=== PATIENT | female | born 1975 | race Caucasian/White ===

== ENCOUNTER 2023-03-16 08:58 | Emergency (ER) | payer OTHER, SELFPAY ==
--- NOTE | ~2023-03-16 | XR_ITS ---
EXAMINATION: XR chest 2V DATE: 03/16/2023 09:52 INDICATION: Cough and congestion. TECHNIQUE: Frontal and lateral views of the chest were obtained. COMPARISON: None. FINDINGS: There is no pneumonia, pleural effusion, or pneumothorax. The heart size is normal. IMPRESSION: 1. No acute cardiopulmonary disease. Reviewed, dictated and finalized at location E. MANAGER
[2023-03-16 09:37] VITALS: BP 148/109; PULSE 106; RESP 16; TEMP 36.4; O2SAT 97
--- NOTE | 2023-03-16 09:43 | ED.URI ---
HPI - URI/Sore Throat General Chief Complaint: Upper Respiratory Infection Stated Complaint: cough,chest congestion Time Seen by Provider: 03/16/23 09:12 Source: patient Mode of arrival: ambulatory Limitations: no limitations History of Present Illness HPI Narrative: Adri is a 47-year-old female patient presenting to the clinic today with complaints of cough and chest congestion x1 week. She reports that she is bringing up some yellow phlegm that is blood tinged at times. States she does have shortness of breath intermittently specifically when coughing. Denies any fever or chills. Denies any chest pain. MD elicited complaint: cough and other (Chest congestion) Related Data Home Medications Medication Instructions Recorded Confirmed aspirin 81 mg tablet,delayed 81 mg PO DAILY 03/16/23 03/16/23 release celecoxib 200 mg capsule 200 mg PO DAILY 03/16/23 03/16/23 duloxetine 20 mg capsule,delayed 20 mg PO DAILY 03/16/23 03/16/23 release gabapentin 600 mg tablet 600 mg PO TID 03/16/23 03/16/23 lisinopril 10 mg tablet 10 mg PO DAILY 03/16/23 03/16/23 norethindrone acetate 1 mg-ethinyl 1 tablet PO DAILY 03/16/23 03/16/23 estradiol 20 mcg tablet (Loestrin) trazodone 50 mg tablet 100 mg PO HS 03/16/23 03/16/23 Allergies Allergy/AdvReac Type Severity Reaction Status Date / Time Sulfa (Sulfonamide AdvReac Intermediate Nausea Verified 03/16/23 09:44 Antibiotics) Review of Systems Review of Systems: Pertinent positives per HPI. Patient denies any fever, chills, rash, headache, visual changes, dizziness, cough, shortness of breath, chest pain, palpitations, nausea, vomiting, diarrhea, constipation, abdominal pain, or any urinary issues. PMFSH Comments At the time of my signature, I reviewed and agree with the nursing past medical, surgical, social, and family history. There is no relevant family history pertinent to the patient complaint. Exam Narrative: General: Well-developed, well nourished, in no apparent distress Head: Normocephalic, atraumatic Eyes: Pupils equally round and reactive to light bilaterally, EOM intact, sclera and conjunctive clear, no discharge, lids normal Ears: TMs intact and clear, ear canals clear, no drainage, grossly hearing normal. Nose: Nares patent, no discharge, no inflammation, no sinus tenderness. Mouth: Oral pharynx without lesions or masses, good dentition, MMM. Neck: Supple, trachea midline, no enlargement of anterior or posterior cervical nodes, no thyroid masses or goiter palpable. Cardio: Regular rate and rhythm, s1 and s2 normal, no murmur appreciated. Resp: Faint expiratory wheeze, no rhonchi, rales, or rubs Course Course Emergency Course: Portions of this record may have been created with voice recognition software. Level of Care: Express Care Visit Vital Signs Vital signs: Vital Signs Temperature 36.4 C 03/16/23 09:37 Pulse Rate 106 H 03/16/23 09:37 Respiratory Rate 16 03/16/23 09:37 Blood Pressure 148/109 H 03/16/23 09:37 Pulse Oximetry 97 03/16/23 09:37 Oxygen Delivery Room Air 03/16/23 09:37 Temperature 36.4 C 03/16/23 09:37 Pulse Rate 106 H 03/16/23 09:37 Respiratory Rate 16 03/16/23 09:37 Blood Pressure 148/109 H 03/16/23 09:37 Pulse Oximetry 97 03/16/23 09:37 Oxygen Delivery Room Air 03/16/23 09:37 Vital signs reviewed MDM - URI/Sore Throat MDM Narrative Medical decision making narrative: At the time of visit patient is resting comfortably on exam table. Patient is nontoxic appearing. Chest x-ray was performed and negative in the clinic today. Suspect patient has bronchitis. Will send in prescription for azithromycin, prednisone, and albuterol inhaler. Supportive measures were discussed with the patient she voiced understanding discharge instructions and agrees to treatment plan. Return precautions were reviewed Differential Diagnosis Differential diagnosis: Likely upper respiratory infectio
== END 2023-03-16 10:07 | disposition home or self-care (01) ==
PROVIDERS: Emergency Provider Nurse Practitioner Family
DX: J40 Bronchitis, not specified as acute or chronic (principal); Z79.899 Other long term (current) drug therapy; Z79.82 Long term (current) use of aspirin
CPT/HCPCS: 71046; 99213; G0463

== ENCOUNTER 2023-11-11 07:16 | Outpatient (CLI) | payer OTHER, SELFPAY ==
--- NOTE | ~2023-11-11 | XR_ITS ---
[id number] Ordering provider: Sumit Duong, History: . Arthrodesis status . Comparison: None. FINDINGS: VERTEBRAL BODIES: Normal height and alignment. No visible fracture or subluxation. The dens is intact . Postoperative changes at the level of C5-C6 with disc spacer, plate and screws. DISK SPACES: Well maintained. PARASPINOUS SOFT TISSUES: No prevertebral soft tissue swelling. IMPRESSION: No acute osseous abnormality cervical spine. Reviewed, dictated and finalized at location A.
== END 2023-11-11 07:17 ==
PROVIDERS: Visit Provider Neurological Surgery
DX: Z98.1 Arthrodesis status (principal)
CPT/HCPCS: 72040

== ENCOUNTER 2023-12-29 09:37 | Outpatient (CLI) | payer OTHER, SELFPAY ==
--- NOTE | ~2023-12-29 | XR_ITS ---
Cervical Spine: AP, lateral, open-mouth views Clinical History: Pain Findings: The normal lordotic curve is maintained. There is anterior fusion from C5 to C6 with disc f usion cage present at this level. No fracture or dislocation evident. Remaining disc spaces are prese rved. Pre-vertebral soft tissues are unremarkable. Impression: Status post anterior fusion from C5 to C6. No other significant findings. Reviewed, dictated and finalized at location . Impression: Status post anterior fusion from C5 to C6. No other significant findings.
== END 2023-12-29 09:38 | disposition home or self-care (01) ==
PROVIDERS: Visit Provider Neurological Surgery
DX: Z98.1 Arthrodesis status (principal)
CPT/HCPCS: 72040

== ENCOUNTER 2024-01-26 08:09 | Outpatient (CLI) | payer OTHER, SELFPAY ==
--- NOTE | ~2024-01-26 | XR_ITS ---
Cervical Spine: AP and lateral views Clinical History: Posterior fusion COMPARISON: 12/29/2023 Findings: The normal lordotic curve is maintained. Stable anterior and interbody fusion from C5 to C6 . Osseous alignment is unchanged. Orthopedic hardware unchanged. Stable mild facet arthropathy. Pre-v ertebral soft tissues are unremarkable. Impression: No interval change. Stable fusion changes at C5-C6. Reviewed, dictated and finalized at [facility]. Impression: No interval change. Stable fusion changes at C5-C6.
== END 2024-01-26 08:10 | disposition home or self-care (01) ==
PROVIDERS: Visit Provider Neurological Surgery
DX: Z98.1 Arthrodesis status (principal)
CPT/HCPCS: 72040

== ENCOUNTER 2024-03-20 11:07 | Outpatient (CLI) | payer OTHER, SELFPAY ==
--- NOTE | ~2024-03-20 | XR_ITS ---
[id number]_CR Ordering provider: Sumit Duong, History: . Arthrodesis status . Comparison: None. FINDINGS: VERTEBRAL BODIES: Normal height and alignment. No visible fracture or subluxation. The dens is intact . Postoperative changes are seen at the level of C5-C6. DISK SPACES: Moderate Narrowing of the disc at the level of C4-C5 Disc spacers seen at the level of C 5-C6. PARASPINOUS SOFT TISSUES: No prevertebral soft tissue swelling. IMPRESSION: No acute osseous abnormality cervical spine. Postoperative changes at the level of C5-C6. Moderate narrowing of the disc C4-C5. Reviewed, dictated and finalized at location A. [facility] THERAPY DIRECTOR
== END 2024-03-20 11:08 | disposition home or self-care (01) ==
LOC: MICIMG 11:09
PROVIDERS: PCP Neurological Surgery; Visit Provider Neurological Surgery
DX: M48.02 Spinal stenosis, cervical region (principal); Z98.1 Arthrodesis status
CPT/HCPCS: 72040

== ENCOUNTER 2024-06-28 09:41 | Outpatient (CLI) | payer OTHER, SELFPAY ==
--- NOTE | ~2024-06-28 | XR_ITS ---
3 VIEWS LUMBAR SPINE Ordering provider: Sumit Duong, History: . Arthrodesis status . Comparison: None. FINDINGS: VERTEBRAL BODIES:Postoperative changes at the level of L3, L4 and L5. No visible fracture or subluxa tion. DISK SPACES: Disc spacers are seen at the level of L3-L4 and L4-L5. Other disc spaces are normal. SOFT TISSUES: Normal. IMPRESSION: No acute osseous abnormality lumbar spine. Postoperative changes. Reviewed, dictated and finalized at location A. [employer] STUDIES DEPARTMENT CHAIR
== END 2024-06-28 09:42 | disposition home or self-care (01) ==
PROVIDERS: PCP Neurological Surgery; Visit Provider Neurological Surgery
DX: Z98.1 Arthrodesis status (principal)
CPT/HCPCS: 72100

== ENCOUNTER 2024-07-26 09:49 | Outpatient (CLI) | payer OTHER, SELFPAY ==
--- NOTE | ~2024-07-26 | XR_ITS ---
Lumbosacral Spine: AP and lateral views Clinical History: Arthrodesis COMPARISON: 06/28/2024 Findings: Stable posterior and interbody fusion hardware from L3 through L5. Osseous and orthopedic h ardware alignment is unchanged. The sacroiliac joints are normally outlined. Impression: Stable fusion hardware from L3 through L5, as detailed above. Reviewed, dictated and finalized at location . Impression: Stable fusion hardware from L3 through L5, as detailed above.
== END 2024-07-26 09:50 | disposition home or self-care (01) ==
LOC: MICIMG 09:51
PROVIDERS: PCP Neurological Surgery; Visit Provider Neurological Surgery
DX: Z98.1 Arthrodesis status (principal)
CPT/HCPCS: 72100

== ENCOUNTER 2024-08-23 13:04 | Outpatient (CLI) | payer OTHER, SELFPAY ==
--- NOTE | ~2024-08-23 | XR_ITS ---
3 VIEWS LUMBAR SPINE Ordering provider: Sumit Duong, History: . Arthrodesis status . Comparison: None. FINDINGS: VERTEBRAL BODIES: No visible fracture or subluxation. Postoperative changes at the level of L3, L4 an d L5. DISK SPACES: Disc spacers at the level of L3-L4 and L4-L5. SOFT TISSUES: Normal. Bilateral sacroiliacs. IMPRESSION: No acute osseous abnormality lumbar spine. Postoperative changes. Reviewed, dictated and finalized at location A.
== END 2024-08-23 13:05 | disposition home or self-care (01) ==
LOC: MICIMG 13:05
PROVIDERS: PCP Neurological Surgery; Visit Provider Neurological Surgery
DX: Z98.1 Arthrodesis status (principal)
CPT/HCPCS: 72100